=== PATIENT | male | born 1955 | race Caucasian/White ===

== ENCOUNTER 2021-05-11 12:52 | Emergency (ER) | payer SELFPAY ==
[2021-05-11 13:21] LABS: CHLORIDE,CL 105 mEq/L (98-106); SODIUM,NA 145 mEq/L (136-145)
[2021-05-11] MEDS: Albuterol/Ipratropium 3.0-0.5 MG/3 ML Neb Soln NEB ONE (13:30)
[2021-05-11 14:00] LABS: CORONAVIRUS COVID-19 NAA POSITIVE (NEGATIVE)
[2021-05-11] MEDS: Iopamidol 755 Mg/ML 100 ML Bottle IVPUSH ONE (14:45)
== END 2021-05-11 17:04 ==
LOC: CC.ED 12:52
DX: U07.1 COVID-19 (principal); R09.02 Hypoxemia; J96.01 Acute respiratory failure with hypoxia
CPT/HCPCS: 0240U; 36415; 71275; 80053; 84484; 85025; 85379; 86140; 93005; 94640; 99285-25; J7620-GY; Q9967